=== PATIENT | female | born 1980 | race Caucasian/White ===

== ENCOUNTER → 2017-01-30 | Outpatient (CLI) | payer OTHER ==
[~2017-01-30] MED LIST: AC500T PO; ALB0.5V INH; ASCO1TAB22 PO; INTE30KI4 IM; MULT-955 PO; TRM50T PO; [UNRECOGNIZED DRUG - CODE] GT
[2017-01-30 14:33] LABS: MEAN PLATELET VOLUME 9.9 FL (6.0-9.5); WHITE BLOOD COUNT 9.17 10^3uL (4.0-11.0)
[2017-01-30 14:34] LABS: MEAN CORPUSCULAR HGB CONC 31.7 g/dL (31.0-37.0)
[2017-01-30 14:57] LABS: ALBUMIN 4.3 g/dL (3.4-5.0); ANION GAP 16.3 MEQ/L (3-15); CALCULATED IONIZED CALCIUM 4.1 mg/dL (3.8-4.6); TOTAL PROTEIN 7.7 g/dL (6.4-8.5)
[2017-01-30 15:24] LABS: BILIRUBIN,URINE Negative (Negative); CLARITY,URINE Clear; COLOR,URINE Yellow; GLUCOSE, URINE (UA) Negative (Negative); LEUKOCYTE ESTERASE ,URINE Negative (Negative); PH,URINE 5.5 (5.0 - 8.0); UROBILINOGEN,URINE 0.2 mg/dL (0.2-1.0)
== END ==
LOC: LAB 14:00
PROVIDERS: ATTEND Family Medicine
DX: E03.9 Hypothyroidism, unspecified (principal); G35 Multiple sclerosis
CPT/HCPCS: 36415; 80053; 80061; 81003; 84443; 85027